=== PATIENT | male | born 1990 | race Caucasian/White ===

== ENCOUNTER 2017-05-19 17:44 | Inpatient (IN) | payer MEDICAID ==
[~2017-05-19] VITALS: Ht 172.7 cm; Wt 125.4 kg
[2017-05-19 18:03] VITALS: Ht 172.7 cm; Wt 125.4 kg
[2017-05-19 20:33] LABS: BASOPHIL % 0.4 % (0-2); PLATELET COUNT 353 x10^3mcL (130-400); RED CELL DISTRIBUTION WIDTH 12.8 % (11.5-14.5)
[2017-05-19 20:51] LABS: CALCIUM 8.7 mg/dL (8.5-10.1); CARBON DIOXIDE 25.2 mmol/L (21-32); CHLORIDE SERUM 101 mmol/L (98-107); CREATININE SERUM 0.8 mg/dL (0.7-1.3); GFR1 > 60 mL/min; GLUCOSE SERUM 81 mg/dL (74-106); POTASSIUM SERUM 3.2 mmol/L (3.5-5.1); SODIUM SERUM 137 mmol/L (136-145)
[2017-05-19 20:56] LABS: ALKALINE PHOSPHATASE 67 U/L (46-116); ALT/SGPT 79 U/L (16-63); AST/SGOT 44 U/L (15-37); BILIRUBIN TOTAL 0.51 mg/dL (0.20-1.00); LIPASE 337 IU/L (73-393); TOTAL PROTEIN, SERUM 7.9 g/dL (6.4-8.2)
[2017-05-19 21:00] LABS: ALBUMIN 3.3 g/dL (3.4-5.0)
[2017-05-20 00:33] VITALS: BP 117/70
[2017-05-20 02:42] LABS: CHOLESTEROL/HDL RATIO 6.3; MAGNESIUM 2.4 mg/dL (1.8-2.4); PHOSPHOROUS 4.2 mg/dL (2.5-4.9)
[2017-05-20 02:45] LABS: T3 TOTAL 1.35 ng/mL
[2017-05-20 02:49] LABS: FREE T4 1.23 ng/dL (0.76-1.46); FREE THYROXINE INDEX 3.6 ug/dL (1.4-4.5); T4(THYROXINE) 10.8 ug/dL (4.7-13.3)
[2017-05-20 06:21] LABS: CALCIUM 8.3 mg/dL (8.5-10.1); CARBON DIOXIDE 24.7 mmol/L (21-32); CHLORIDE SERUM 105 mmol/L (98-107); CREATININE SERUM 0.8 mg/dL (0.7-1.3); GFR1 > 60 mL/min; GLUCOSE SERUM 85 mg/dL (74-106); POTASSIUM SERUM 3.4 mmol/L (3.5-5.1); SODIUM SERUM 138 mmol/L (136-145)
[2017-05-20 06:25] LABS: BASOPHIL % 0.8 % (0-2); PLATELET COUNT 330 x10^3mcL (130-400); RED CELL DISTRIBUTION WIDTH 12.4 % (11.5-14.5)
[2017-05-20 06:30] VITALS: BP 107/64
[2017-05-20 08:15] VITALS: BP 121/76
[2017-05-20 11:20] LABS: microscopic required? NO
[2017-05-20 11:54] LABS: urine erythrocyte NEGATIVE (NEGATIVE)
[2017-05-20 12:18] LABS: AMPHETAMINE QUAL UR NONE DETECTED (NEG <=1000)
[2017-05-20 16:35] VITALS: BP 126/82
[2017-05-20 22:07] VITALS: BP 110/77
[2017-05-21 05:22] VITALS: BP 123/87
[2017-05-21 07:14] LABS: BASOPHIL % 0.2 % (0-2); PLATELET COUNT 362 x10^3mcL (130-400); RED CELL DISTRIBUTION WIDTH 12.5 % (11.5-14.5)
[2017-05-21 07:32] LABS: CALCIUM 8.6 mg/dL (8.5-10.1); CARBON DIOXIDE 23.4 mmol/L (21-32); CHLORIDE SERUM 101 mmol/L (98-107); CREATININE SERUM 0.8 mg/dL (0.7-1.3); GFR1 > 60 mL/min; GLUCOSE SERUM 82 mg/dL (74-106); MAGNESIUM 2.2 mg/dL (1.8-2.4); PHOSPHOROUS 4.2 mg/dL (2.5-4.9); SODIUM SERUM 136 mmol/L (136-145)
[2017-05-21 09:38] VITALS: BP 138/72
[2017-05-21 12:19] VITALS: BP 155/77
[2017-05-21 16:32] VITALS: BP 133/80
[2017-05-21 21:10] VITALS: BP 119/79
[2017-05-22 05:20] VITALS: BP 142/85
[2017-05-22 10:00] VITALS: BP 124/78
[2017-05-22 10:25] LABS: BASOPHIL % 0.5 % (0-2); PLATELET COUNT 399 x10^3mcL (130-400); RED CELL DISTRIBUTION WIDTH 12.6 % (11.5-14.5)
[2017-05-22 12:15] VITALS: BP 117/79
[2017-05-22] MEDS ORDERED: CIPROFLOXACIN500 MG PO (12:43)
[2017-05-22] MEDS ORDERED: LAC PO (12:44)
[2017-05-22] MEDS ORDERED: FLA500 PO (12:44)
[2017-05-22] MEDS ORDERED: NORCO1 TA2 PO (12:58)
[2017-05-22 13:27] VITALS: BP 117/79
== END 2017-05-22 14:42 | disposition home or self-care (01) | DRG 244 ==
LOC: ED 17:44 → DU 23:17 → MU 23:17 → DU 05-20 00:26 → MU 05-20 09:17
PROVIDERS: Emergency Medicine; Family Medicine; Student in an Organized Health Care Education/Training Program
PROC: 0K9 Muscles, Drainage (ICD-10-PCS; principal; 2017-05-19)
DX: K57.20 Diverticulitis of large intestine with perforation and abscess without bleeding (principal); K76.0 Fatty (change of) liver, not elsewhere classified; E11.65 Type 2 diabetes mellitus with hyperglycemia; E44.1 Mild protein-calorie malnutrition; E87.6 Hypokalemia; E78.5 Hyperlipidemia, unspecified; E66.01 Morbid (severe) obesity due to excess calories; Z68.41 Body mass index [BMI] 40.0-44.9, adult
CPT/HCPCS: 32557; 82962; 83880; 84439; 90658; J1170; J2001; J2270; J2543; J3480; J3490; J7030; Q0092; Q9967

== ENCOUNTER 2019-06-15 07:41 | Emergency (ER) | payer MEDICAID ==
[~2019-06-15] VITALS: Ht 170.2 cm; Wt 131.1 kg
[~2019-06-15 07:41] MED LIST: CIPROFLOXACIN500 MG PO; FLA500 PO; LAC PO; NORCO1 TA2 PO
[2019-06-15 07:44] VITALS: BP 167/100; Ht 170.2 cm; Wt 131.1 kg
== END 2019-06-15 09:02 | disposition home or self-care (01) ==
LOC: ED 07:41
DX: K11.21 Acute sialoadenitis (principal)
CPT/HCPCS: J7512

== ENCOUNTER 2020-05-18 17:15 | Emergency (ER) | payer MEDICAID, SELFPAY ==
[~2020-05-18] VITALS: Ht 175.3 cm; Wt 135.6 kg
[2020-05-18 17:17] VITALS: Ht 175.3 cm; Wt 135.6 kg
[2020-05-18 18:32] VITALS: BP 151/81
== END 2020-05-18 18:26 | disposition home or self-care (01) ==
LOC: ED 17:15
DX: U07.1 COVID-19 (principal); E66.01 Morbid (severe) obesity due to excess calories
CPT/HCPCS: U0003